=== PATIENT | male | born 1995 | race Two or more races ===

== ENCOUNTER 2017-06-11 13:30 | Day surgery (SDC) | payer OTHER ==
[~2017-06-11] VITALS: Ht 182.9 cm; Wt 106.6 kg
[2017-06-11] VITALS (13 sets, daily range): BP systolic 123–160; BP diastolic 72–106
[~2017-06-11 13:30] MED LIST: ceFAZolin sod 1 GM in NS 55 ML IVPB ONE; celeBREX 200mg Cap **SURGERY PATIENTS ONLY ORAL ONE; oxyCONTIN 20mg tab ORAL ONE
[2017-06-11] MEDS ORDERED: CALCIUM500 M3 PO (13:59)
[2017-06-11] MEDS ORDERED: MULTIVITAMINS1 EA14 PO (13:59)
[2017-06-11] MEDS ORDERED: cloNIDine 1000mcg/10ml inj ONE (14:09)
[2017-06-11] MEDS ORDERED: Ropivacaine 5mg/ml Vial 30ml INJ ONE (14:10)
[2017-06-11] MEDS ORDERED: Bupivacaine 0.5% Inj 30 ml vial INJ ONE (14:10)
[2017-06-11] MEDS ORDERED: Bupivacaine 0.25% Inj 30ml INJ ONE (14:25)
[2017-06-11] MEDS ORDERED: NeoSporin Gu Irrig 1ml Amp IRRIG ONE (14:25)
[2017-06-11] MEDS ORDERED: Bacitracin 50000 Units Vial ONE (14:25)
[2017-06-11] MEDS ORDERED: LR 1000ml ONE (14:30)
[2017-06-11] MEDS ORDERED: fentaNYL 100 mcg/2 mL IV ONE (14:30)
[2017-06-11] MEDS ORDERED: Alfentanil 2ml Inj ONE (14:30)
[2017-06-11] MEDS ORDERED: Lidocaine 1% Plain 30 ml INJ ONE (14:30)
[2017-06-11] MEDS ORDERED: Labetalol 5mg/ml 20ml vial IV ONE (14:30)
[2017-06-11] MEDS ORDERED: NS Irrig 1000ml ONE (14:30)
[2017-06-11] MEDS ORDERED: Propofol 200mg/20ml IV ONE (14:30)
[2017-06-11] MEDS ORDERED: Dexamethasone 4mg/ml vial ONE (14:30)
[2017-06-11] MEDS ORDERED: Lidocaine 1% MPF 10mg/ml 5ml ONE (14:30)
[2017-06-11] MEDS ORDERED: Sterile Water Irrig 1000ml IRRIG ONE (14:30)
--- NOTE | 2017-06-11 14:34 | Operative Note - PDOC ---
Operative Note Operative Note Pre-op Diagnosis: left ankle fracture Procedure: left ankle orif Post-op Diagnosis: same as pre-op plus Operative Findings: consistent w/pre-op dx studies Anesthesia: regional Specimen: none Complications: none Condition: stable Estimated Blood Loss: minimal Implant(s) used?: Yes PATRICK ORTEGA Jun 11, 2017 14:34
--- NOTE | 2017-06-11 14:34 | Pre-Procedure Note/Attestation ---
Pre-Procedure Note/Attestation Complete Prior to Procedure Planned Procedure: left Procedure Narrative: ankle orif Indications for Procedure Pre-Operative Diagnosis: left ankle fracture Attestation I attest that I discussed the nature of the procedure; its benefits; risks and complications; and alternatives (and the risks and benefits of such alternatives ), prior to the procedure, with the patient (or the patient's legal route sales representative). I attest that, if there was a reasonable possibility of needing a blood transfusion, the patient (or the patient's legal route sales representative) was given the [facility] standardized written summary, pursuant to the [employer] Blood Safety Act ([place] Health and Safety Code # 1645, as amended). I attest that I re-evaluated the patient just prior to the surgery and that there has been no change in the patient's H&P, except as documented below: PATRICK ORTEGA Jun 11, 2017 14:34
[2017-06-11 14:35] LABS: BASOPHILS % (AUTO) 1.4 % (0.0-2.0); EOSINOPHILS % (AUTO) 2.8 % (0.0-3.0); LYMPHOCYTES % (AUTO) 29.3 % (20.0-45.0); MEAN CORPUSCULAR HGB CONC 34.6 G/DL (32.0-36.0); MEAN CORPUSCULAR VOLUME 93 FL (80-99); MEAN PLATELET VOLUME 9.5 FL (6.5-10.1); MONOCYTES % (AUTO) 9.1 % (1.0-10.0); NEUTROPHILS % (AUTO) 57.3 % (45.0-75.0); PLATELET COUNT 248 K/UL (150-450); RED BLOOD COUNT 5.03 M/UL (4.70-6.10); RED CELL DISTRIBUTION WIDTH 11.3 % (11.6-14.8); WHITE BLOOD COUNT 6.9 K/UL (4.8-10.8)
[2017-06-11 14:40] LABS: PROTHROMBIN TIME 10.6 SEC (9.30-11.50)
[2017-06-11] MEDS ORDERED: Norco 5mg/325mg tab ORAL PRN ×2 (14:45→15:30)
[2017-06-11] MEDS ORDERED: D5 1/2NS 1,000 ML IV SCH (14:45)
[2017-06-11] MEDS ORDERED: Tylenol #3 tab (300mg/30mg) ORAL PRN (14:45)
[2017-06-11] MEDS ORDERED: HYDROmorphone 1mg/ml Carpuject SUBQ PRN (14:45)
[2017-06-11 15:00] LABS: ANION GAP 10 mmol/L (5-15); CALCIUM 9.1 MG/DL (8.5-10.1); CARBON DIOXIDE 24 MMOL/L (21-32); CHLORIDE 106 MMOL/L (98-107); CREATININE 0.9 MG/DL (0.55-1.30); GLOMERULAR FILTRATION RATE > 60 mL/min (>60); POTASSIUM 3.9 MMOL/L (3.5-5.1); SODIUM 140 MMOL/L (136-145)
[2017-06-11 15:05] LABS: ALANINE AMINOTRANSFERASE 61 U/L (12-78); ASPARTATE AMINO TRANSFERASE 29 U/L (15-37); TOTAL PROTEIN 8.1 G/DL (6.4-8.2)
[2017-06-11] MEDS ORDERED: Acetaminophen (Non formulary) 100 ML IV ONE (15:15)
--- NOTE | 2017-06-11 15:24 | Anethesia Preoperative Eval ---
Anesthesia Pre-op PMH/ROS General Date of Evaluation: Jun 11, 2017 Time of Evaluation: 14:31 Anesthesiologist: Tonya ASA Score: ASA 2 Mallampati Score Class I : Soft palate, uvula, fauces, pillars visible Class II: Soft palate, uvula, fauces visible Class III: Soft palate, base of uvula visible Class IV: Only hard plate visible Mallampati Classification: Class II Surgeon: Taz Diagnosis: L Ankle Fx Surgical Procedure: ORIF L Ankle Anesthesia History: none Family History: no anesthesia problems Allergies: Coded Allergies: No Known Allergies (Unverified , 06/11/17) Medications: see eMAR Past Medical History Neurologic/Psychiatric: Reports: depression/anxiety Other: obesity - BMI 32 Anesthesia Pre-op Phys. Exam Physician Exam Last Vital Signs Date Time Temp Pulse Resp B/P (MAP) Pulse Ox O2 Delivery O2 Flow Rate FiO2 06/11/17 14:06 98.6 78 19 123/72 97 Room Air Constitutional: NAD Neurologic: CN 2-12 intact Cardiovascular: RRR Respiratory: CTA Gastrointestinal: S/NT/ND Airway Exam Mallampati Score: Class II MO: full ROM: full Teeth: intact Anesthesia Pre-op A/P Labs Hematology Test 06/11/17 14:15 White Blood Count 6.9 K/UL (4.8-10.8) Red Blood Count 5.03 M/UL (4.70-6.10) Hemoglobin 16.1 G/DL (14.2-18.0) Hematocrit 46.6 % (42.0-52.0) Mean Corpuscular Volume 93 FL (80-99) Mean Corpuscular Hemoglobin 32.0 PG (27.0-31.0) H Mean Corpuscular Hemoglobin Concent 34.6 G/DL (32.0-36.0) Red Cell Distribution Width 11.3 % (11.6-14.8) L Platelet Count 248 K/UL (150-450) Mean Platelet Volume 9.5 FL (6.5-10.1) Neutrophils (%) (Auto) 57.3 % (45.0-75.0) Lymphocytes (%) (Auto) 29.3 % (20.0-45.0) Monocytes (%) (Auto) 9.1 % (1.0-10.0) Eosinophils (%) (Auto) 2.8 % (0.0-3.0) Basophils (%) (Auto) 1.4 % (0.0-2.0) Coagulation Test 06/11/17 14:15 Prothrombin Time 10.6 SEC (9.30-11.50) Prothromb Time International Ratio 1.0 (0.9-1.1) Activated Partial Thromboplast Time 32 SEC (23-33) Chemistry Test 06/11/17 14:15 Sodium Level 140 MMOL/L (136-145) Potassium Level 3.9 MMOL/L (3.5-5.1) Chloride Level 106 MMOL/L (98-107) Carbon Dioxide Level 24 MMOL/L (21-32) Anion Gap 10 mmol/L (5-15) Blood Urea Nitrogen 11 mg/dL (7-18) Creatinine 0.9 MG/DL (0.55-1.30) Estimat Glomerular Filtration Rate > 60 mL/min (>60) Glucose Level 91 MG/DL (74-106) Calcium Level 9.1 MG/DL (8.5-10.1) Total Bilirubin 0.5 MG/DL (0.2-1.0) Aspartate Amino Transf (AST/SGOT) 29 U/L (15-37) Alanine Aminotransferase (ALT/SGPT) 61 U/L (12-78) Alkaline Phosphatase 150 U/L (46-116) H Total Protein 8.1 G/DL (6.4-8.2) Albumin 4.0 G/DL (3.4-5.0) Globulin 4.1 g/dL Albumin/Globulin Ratio 1.0 (1.0-2.7) Risk Assessment & Plan Assessment: ASA 2 Plan: GA, BIS, L Sciatic Block Status Change Before Surgery: No Pre-Antibiotics Dru Grams Ancef IV Given Within 1 Hr of Incision: Yes Time Given: 14:16 Evangelista Castaneda MD Jun 11, 2017 15:23
--- NOTE | 2017-06-11 15:25 | Immediate Post-Op Evaluation ---
Immediate Post-Op Evalulation Immediate Post-Op Evalulation Procedure: ORIF L Ankle Fx Date of Evaluation: Jun 11, 2017 Time of Evaluation: 17:15 IV Fluids: 1000 LR Blood Products: 0 Estimated Blood Loss: 75 Urinary Output: 0 Blood Pressure Systolic: 135 Blood Pressure Diastolic: 92 Pulse Rate: 91 Respiratory Rate: 16 O2 Sat by Pulse Oximetry: 98 Temperature (Fahrenheit): 100 Pain Score (1-10): 3 Nausea: No Vomiting: No Complications 0 Patient Status: awake, reacts, patent, none Hydration Status: adequate Dru Grams Ancef IV Given Within 1 Hr of Incision: Yes Time Given: 14:46 Evangelista Castaneda MD Jun 11, 2017 15:25
[2017-06-11] MEDS ORDERED: Midazolam 2mg/2ml Inj IVP PRN (15:30)
[2017-06-11] MEDS ORDERED: LORazepam Inj 2mg/ml 1ml IV PRN (15:30)
[2017-06-11] MEDS ORDERED: DiphenhydrAMINE 50mg/ml Inj IVP PRN (15:30)
[2017-06-11] MEDS ORDERED: Atropine Inj 1mg/10ml Syr IV PRN (15:30)
[2017-06-11] MEDS ORDERED: Ketorolac 60mg Inj IV PRN (15:30)
[2017-06-11] MEDS ORDERED: oxyCODONE HCL/Acetaminophen 5/325mg ORAL PRN (15:30)
[2017-06-11] MEDS ORDERED: Hydromorphone 0.5mg/0.5ml inj IVP PRN (15:30)
[2017-06-11] MEDS ORDERED: Metoclopramide 10mg/2ml Inj IVP PRN (15:30)
[2017-06-11] MEDS ORDERED: Ketorolac 30mg Inj IV PRN (15:30)
[2017-06-11] MEDS ORDERED: Norco 7.5mg/325mg tab ORAL PRN (15:30)
[2017-06-11] MEDS ORDERED: fentaNYL 100 mcg/2 mL IV PRN (15:30)
--- NOTE | 2017-06-11 15:36 | 48 Hour Post Anesthesia Eval ---
Post Anesthesia Evaluation Procedure: ORIF L Ankle Fx Date of Evaluation: Jun 11, 2017 Time of Evaluation: 19:22 Blood Pressure Systolic: 128 0: 67 Pulse Rate: 87 Respiratory Rate: 18 Temperature (Fahrenheit): 98.6 O2 Sat by Pulse Oximetry: 98 Airway: patent Nausea: No Vomiting: No Pain Intensity: 3 Hydration Status: adequate Cardiopulmonary Status: Stable Mental Status/LOC: patient returned to baseline Follow-up Care/Observations: 0 Post-Anesthesia Complications: 0 Follow-up care needed: ready to discharge Evangelista Castaneda MD Jun 11, 2017 15:36
[2017-06-11] MEDS ORDERED: LR 1000ml 1,000 ML IVLG SCH (17:30)
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
--- NOTE | 2017-06-12 08:30 | Diagnostic Imaging Report ---
Indication: Pain, status post fall Technique: Multiple views of the left ankle Comparison: None Findings: Intraoperative imaging documents surgical repair of a lateral sideplate and screws of distal fibular fracture. Impression: Intraoperative imaging, as described
== END 2017-06-11 20:03 | disposition home or self-care (01) ==
LOC: SUR 13:30
DX: S82.892A Other fracture of left lower leg, initial encounter for closed fracture (principal); S93.492A Sprain of other ligament of left ankle, initial encounter; X58.XXXA Exposure to other specified factors, initial encounter; Y93.9 Activity, unspecified; Y92.9 Unspecified place or not applicable; F32.9 Major depressive disorder, single episode, unspecified; F41.9 Anxiety disorder, unspecified
CPT/HCPCS: 27792; 36415; 73600; 76001; 80053; 85025; 85610; 85730; C1713; J0360; J0690; J0735; J1100; J1170; J1200; J2001; J2250; J2405; J2704; J2795; J3010; J3490; J7120; 94003; 94150